=== PATIENT | female | born 1980 | race Caucasian/White ===

== ENCOUNTER 2021-02-27 21:17 | Emergency (ER) | payer BC, MEDICAID, OTHER ==
[2021-02-27] MEDS ORDERED: Diphtheria,Pertussis(Acell),Tetanus Vaccine 0.5 ML Syringe IM ONE (21:38)
[2021-02-27] MEDS ORDERED: Ketorolac 60 MG/2 ML SDV IM ONE (21:53)
[2021-02-27] MEDS ORDERED: Acetaminophen/HYDROcodone 325-5 MG Tab PO PRN (21:54)
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
[2021-02-28 00:34] VITALS: BP 148/89; PULSE 70
== END 2021-02-27 22:34 | disposition home or self-care (01) ==
LOC: KA.ED 21:17
DX: T23.151A Burn of first degree of right palm, initial encounter (principal); Z23 Encounter for immunization; Z88.2 Allergy status to sulfonamides; X14.1XXA Other contact with hot air and other hot gases, initial encounter
CPT/HCPCS: 90471; 90715; 96372; 99283; A9270-GY; J1885

== ENCOUNTER 2024-09-30 16:34 | Emergency (ER) | payer BC, MEDICAID ==
[2024-09-30 16:42] VITALS: BP 136/86; PULSE 53
== END 2024-09-30 17:23 | disposition home or self-care (01) ==
LOC: KA.ED 16:34
DX: S63.501A Unspecified sprain of right wrist, initial encounter (principal); I10 Essential (primary) hypertension; Z88.2 Allergy status to sulfonamides; W18.30XA Fall on same level, unspecified, initial encounter
CPT/HCPCS: 73110-RT; 99283

== ENCOUNTER 2024-11-18 19:30 | Emergency (ER) | payer BC ==
[2024-11-18] MEDS: Ketorolac 30 MG/ML SDV IM ONE (19:55)
[2024-11-18] MEDS: diphenhydrAMINE 25 MG Cap PO ONE (19:56)
[2024-11-18 22:15] VITALS: BP 147/94; PULSE 60
== END 2024-11-18 20:07 | disposition home or self-care (01) ==
LOC: KA.ED 19:30
DX: R51.9 Headache, unspecified (principal); Z88.2 Allergy status to sulfonamides; Z79.899 Other long term (current) drug therapy; Z90.710 Acquired absence of both cervix and uterus
CPT/HCPCS: 96372; 99283; A9270; J1885; 99284